=== PATIENT | female | born 1945 | race Caucasian/White ===

== ENCOUNTER 2021-06-25 17:00 | Inpatient (IN) | payer OTHER ==
--- OUTSIDE RECORDS SUMMARY | 2021-06-25 17:03 | XMS REPORT | Continuity of Care Document ---
:1945 Author Organization [facility] t Address [address] [place] [address] [address] [place] [address] Care Team Providers Name Role Phone FRANCO Primary Care Physician Unavailable VERONIKA Attending Clinician Unavailable Nguyen_Tho Attending Clinician Unavailable Raju_P Attending Clinician Unavailable FRANCO Attending Clinician Unavailable Nguyen_Tho Admitting Clinician Unavailable Raju_P Admitting Clinician Unavailable FRANCO Admitting Clinician Unavailable Payers Payer Name Policy Type Policy Number Effective Date Expiration Date S rachell [place]: [id number] 2008 [place] - 00:00:00 [facility] [id number] 2009 00:00:00 [facility] [id number] [place]: [id number] 2008 [place] 00:00:00 [facility] [id number] 2009 (MEDICARE 00:00:00 SUPPLEMENT) Problems Condition Condition Condition Status Onset Resolution Last Treating Co mments Source Name Details Category Date Date Treatment Clinician Date Hypertensi Hypertensi Problem Active M [facility] ve ve 08-17 da disorder Disorder 00:00: [facility] 00 [facility] Out[facility] Program Seizure Seizure Problem Active [place] disorder Disorder [facility] Essential Essential Problem Active [facility] hypertensi Hypertensi da on on Medical Group Acute Acute Problem Active [place] upper Upper da respirator Respirator Me dical y y Group infection Infection Allergic Allergic Problem Active [place] rhinitis Rhinitis [facility] Ankle Ankle Problem Active [place] joint pain Joint Pain [facility] Chronic Chronic Problem Active [place] back pain Back Pain [facility] Primary Primary Problem Active [place] fibromyalg Fibromyalg da ia ia Medical syndrome Syndrome Group Seizure Seizure Problem Active [place] [facility] Intertroch Intertroch Problem Active M [facility] anteric anteric da fracture Fracture Medica l Group Closed Closed Problem Active [place] fracture Fracture da of hip of Hip Medical Group Fracture Fracture Problem Active [place] of ankle of Ankle [facility] Closed Closed Problem Active [place] fracture Fracture da of lateral of Lateral Me dical malleolus Malleolus Grou p Allergies, Adverse Reactions, Alerts This patient has no known allergies or adverse reactions. Social History Smoking Status Start Date Stop Date Source Never Smoker [facility] Medications Ordered Filled Start Stop Current Ordering Indication Dosage Frequency Signature Comments Components Source Medication Medication Date Date Medication? Clinician (SIG) Name Name Depo-Medrol Depo-Medrol No Depo-Medro [place] 40 mg/mL 40 mg/mL 2-21 l 40 mg/mL d a suspension suspension 15:42: suspension Medical for for 00 for Group injectionTa injectionTa injectionT ke 1 mL by ke 1 mL by joey 1 mL injection injection by route. route. injection route. Diovan 160 Diovan 160 No Diovan 160 [place] mg tablet mg tablet mg tablet da TAKE 1 TAKE 1 TAKE 1 [facility] TABLET BY TABLET BY TABLET BY al MOUTH EVERY MOUTH EVERY MOUTH Health DAY DAY EVERY DAY Outreac h Program Lidocaine Lidocaine No 15mL Q3H Lidocaine [place] Viscous 2 % Viscous 2 % Viscous 2 da mucosal mucosal % mucosal Epis scleroscope tester solution solution solution al Take 15 mL Take 15 mL Take 15 mL Health every 3 every 3 every 3 Outrea c hours by hours by hours by h oral route oral route oral route Program for 5 days. for 5 days. for 5 swish and swish and days. spit out spit out swish and spit out amoxicillin amoxicillin No 1capsul Q8H amoxicilli [place] 500 mg 500 mg e(s) n 500 mg da capsule capsule capsule [facility] Take 1 Take 1 Take 1 al capsule capsule capsule Health every 8 every 8 every 8 Outrea c hours by hours by hours by h oral route oral route oral route Program for 10 for 10 for 10 days. days. days. carvedilol carvedilol No carvedilol [place] 25 mg 25 mg 25 mg da tablet TAKE tablet TAKE tablet [facility] 1 TABLET BY 1 TABLET BY TAKE 1 al MOUTH TWICE MOUTH TWICE TABLET BY Health A DAY A DAY MOUTH Outreac TWICE A h DAY Program Dilantin Dilantin No Dilantin [facility] Extended Extended Extended da 100 mg 100 mg 100 mg [facility] capsule capsule capsule al TAKE 3 TAKE 3 TAKE 3 Health CAPSULES BY CAPSULES BY CAPSULES Outreac MOUTH DAILY MOUTH DAILY BY MOUTH h AT BEDTIME AT BEDTIME DAILY AT Program BEDTIME alendronate alendronate No alendronat [place] 70 mg 70 mg e 70 mg da tablet Take tablet Take tablet Medical 1 tablet 1 tablet Take 1 Group every week every week tablet by oral by oral every week route. route. by oral route. aspirin 81 aspirin 81 No 1 Q1D aspirin 81 [place] mg chewable mg chewable mg d a tablet Chew tablet Chew chewable Medical 1 tablet 1 tablet tablet Group every day every day Chew 1 by oral by oral tablet route. route. every day by oral route. calcium calcium No calcium [place] r carbonate 1 carbonate 1 carbonate da TAB PO BID TAB PO BID 1 TAB PO Medical BID Group carvedilol carvedilol No carvedilol [place] 25 mg 25 mg 25 mg da tablet Take tablet Take tablet Medical 1 tablet 1 tablet Take 1 Group twice a day twice a day tablet by oral by oral twice a route for route for day by 90 days. 90 days. oral route for 90 days. Depo-Medrol Depo-Medrol No 1mL Depo-Medro [place] 40 mg/mL 40 mg/mL l 40 mg/mL d a suspension suspension suspension Medical for for for Group injection injection injection Take 1 mL Take 1 mL Take 1 mL by by by injection injection injection route. route. route. Dilantin Dilantin No Dilantin [place] Extended Extended Extended da 100 mg 100 mg 100 mg Medical capsule capsule capsule Group Take 1 Take 1 Take 1 capsule 3 capsule 3 capsule 3 times a day times a day times a by oral by oral day by route for route for oral route 90 days. 90 days. for 90 days. Diovan 160 Diovan 160 No Diovan 160 [place] mg tablet mg tablet mg tablet da Take 1 Take 1 Take 1 Medical tablet tablet tablet Group every day every day every day by oral by oral by oral route for route for route for 30 days. 30 days. 30 days. esomeprazol esomeprazol No esomeprazo [place] e magnesium e magnesium le d a 40 mg 40 mg magnesium Medical capsule,del capsule,del 40 mg Group ayed ayed capsule,de release release layed Take 1 Take 1 release capsule capsule Take 1 every day every day capsule by oral by oral every day route for route for by oral 30 days. 30 days. route for 30 days. fluticasone fluticasone No 2spray( Q1D fluticason [place] 50 50 s) e 50 da mcg/actuati mcg/actuati mcg/actuat Medical on nasal on nasal ion nasal Gr oup spray,suspe spray,suspe spray,susp nsion [place] nsion [place] ension 2 sprays 2 sprays [place] 2 every day every day sprays by by every day intranasal intranasal by route. route. intranasal route. mupirocin 2 mupirocin 2 No mupirocin [place] % topical % topical 2 % da ointment ointment topical Medi shola ointment Group Xyzal 5 mg Xyzal 5 mg No 1 Q1D Xyzal 5 mg [place] tablet Take tablet Take tablet da 1 tablet 1 tablet Take 1 Medic al every day every day tablet Gali up by oral by oral every day route for route for by oral 30 days. 30 days. route for 30 days. Immunizations Ordered Immunization Filled Immunization Date Status Commen ts Source Name Name pneumococcal pneumococcal 2016-11-13 Completed [facility] polysaccharide PPV23 polysaccharide PPV23 10:54:15 Medical Group influenza, high dose influenza, high dose 2016-11-13 Completed [facility] seasonal seasonal 10:50:00 Medical Group Vital Signs Vital Name Observation Time Observation Value Comments Source BP Diastolic 2020-08-17 00:00:00 68 mm[Hg] Treva blackman [facility] Height 2020-08-17 00:00:00 63 [in_i] Treva black[facility] BMI (Body Mass 2020-08-17 00:00:00 20 kg/m2 Rik churchill [facility] BP Systolic 2020-08-17 00:00:00 124 mm[Hg] [facility] Body Weight 2020-08-17 00:00:00 1808 [oz_av] [place] [facility] BP Diastolic 2018-03-28 00:00:00 74 mm[Hg] [facility] Height 2018-03-28 00:00:00 63 [in_i] [place] [facility] BMI (Body Mass 2018-03-28 00:00:00 21.8 kg/m2 [facility]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) Group BP Systolic 2018-03-28 00:00:00 130 mm[Hg] [place] [facility] Body Weight 2018-03-28 00:00:00 1971 [oz_av] [facility] Procedures Procedure Date / Time Performed Performing Clinician Sour e Joint Replacement 2014-02-05 00:00:00 [facility] Breast Biopsy 2011-02-05 00:00:00 [facility] Breast Surgery 2010-02-05 00:00:00 [facility] Hysterectomy [facility] Orthopedic Surgery [facility] Appendectomy [facility] Encounters Start End Encounter Admission Attending Care Care Encounter Source Date/Time Date/Time Type Type Clinicians Facility Department ID 2021-06-22 Outpatient [facility] [id number] [place] 11:57:51 [id number] Health 2021-04-06 2021-04-06 [facility] [id number] [place] 00:00:00 00:00:00 PINK[facility] [address] 2021-04-06 2021-04-06 [facility] [id number] [place] 00:00:00 00:00:00 PINK[facility] [address] 2020-08-18 2020-08-18 Outpatient Ngen_o [facility] [id number] [place] 05:00:00 05:00:00 0714 [facility] 2020-08-17 2020-08-17 Outpatient Ngen_o 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 Program 2019-12-24 2019-12-24 Outpatient Raju_P [facility] [id number] [place] 02:23:00 02:23:00 1118 da [facility] 2018-04-29 2018-04-29 [place] [id number] [place] 02:06:00 02:06:00 0609 [facility] 2018-03-28 2018-03-28 Mychal MM [place] - [id number] [place] 00:00:00 00:00:00 Ayush Chavez Medical Medical MD: [address] [facility], [place] [address] , Ph. 2017-04-12 2017-04-12 [id number] 19:11:00 19:11:00 [facility] Results Test Description Test Time Test Comments Results Result Comments Source Comprehensive Metabolic Panel 2017-04-12 20:30:00 Test Item Value Reference Range Interpretation Comme nts Sodium (test code = NA) 143 mmol/L 135-145 N Potassium (test code = K) 4.8 mmol/L 3.5-5.1 N Chloride (test code = CL) 101 mmol/L 98-105 N Carbon Dioxide (test code = 27 mmol/L 22-29 N CO2) Glucose (test code = GLU) 91 mg/dL 70-115 N Blood Urea Nitrogen (test 18 mg/dL 8-23 N code = BUN) Creatinine (test code = 0.9 mg/dL 0.5-0.9 N CREAT) Calcium (test code = CA) 8.9 mg/dL 8.3-10.5 N Prot Total (test code = TP) 6.3 g/dL 6.4-8.3 L Albumin (test code = ALB) 4.0 g/dL 3.5-5.2 N A/G Ratio (test code = 1.7 Ratio AGRATIO) Globulin (test code = GLOB) 2.3 2.9-3.1 L Bili Total (test code = 0.2 mg/dL 0.1-0.9 N TBIL) Alk Phos (test code = 96 U/L 35-104 N APHOS) AST (test code = AST) 24 U/L 1-32 N ALT (test code = ALT) 23 U/L 1-33 N BUN/Creatinine Ratio (test 20.0 code = BCRATIO) Anion Gap (test code = 15 mmol/L 7-16 N AGAP) Estimated GFR (test code = >60 mL/min/1.73m2 eGFR (estimated Glomerular GFR) Filtration Rate ) is an estimated value ,calculated from the patien t's serum creatinine usin g the MDRD equation.It is NOT the patient's actua l GFR. The eGFR provides a more clinicallyusefu l measure of kidney disease than serum creatinine luis e.This calculation alva es sex and race into accou nt, if the informationis p rovided. If the race is not provided, and the patient isAfrican-Ameri can, multiply by 1.212. If se x is not provided, and t hepatient is female, multipl y by 0.742. Results for pat ients <18 years ofage hav e not been validated by e MDRD study and should be i nterpretedwith caution.eGFR Re sult Interpretation: eGFR > or = 60 is in the Ruthy l RangeeGFR < 60 may mean kid gaurav diseaseeGFR < 1 5 may mean kidney failure* Ranges recommended by the National Kidney Foundation,http ://nkdep.nih.g ov Lipid [id number] 20:30:00 Test Item Value Reference Range Interpretation Comments Cholesterol (test 185 mg/dL 0-200 N code = CHOL) Triglycerides (test 79 mg/dL 9-200 N code = TRIG) HDL (test code = 80 mg/dL 50-60 H HDL) Chol/HDL (test code 2.3 Ratio 0.0-4.4 N = CHOLPHDL) LDL, Calculated 89 mg/dL 0-130 N (NOTE)RISK O F HEART (test code = LDLC) DISEASEPu blished by [place] Heart AssociationAnal yte Optim al Boderline Increased RiskC HOL <200 200-239 >240TRI G <150 150-199 >200HDL Male: >60 <40HDL Female: >60 <50 LDL < 100 130-15 9 >160 LDL NEAR OPTIMAL IS 100- 129 VLDL (test code = 16 mg/dL 5-40 N VLDL) LDL/HDL (test code = 1 LDLPHDL) CBC with [id number] 19:36:00 Test Item Value Reference Range Interpretation Comments WBC (test code = WBC) 4.5 K/cumm 4.4-10.5 N RBC (test code = RBC) 4.13 M/cumm 3.75-5.20 N Hemoglobin (test code = HGB) 12.9 gm/dL 12.2-14.8 N Hematocrit (test code = HCT) 38.6 % 36.5-44.4 N MCV (test code = MCV) 93.5 fL 80-100 N MCH (test code = MCH) 31.1 pg 27.0-32.5 N MCHC (test code = MCHC) 33.3 g/dL 32.0-37.5 N RDW (test code = RDW) 13.0 % 11.5-14.5 N Platelet Count (test code = 221 K/cumm 140-440 N PLTCT) MPV (test code = MPV) 6.9 fL Diff Method (test code = DIFFM) Auto Neutrophil (test code = NEUT) 57.4 % 36-70 N Lymphocyte (test code = LYMPH) 28.2 % 12-44 N Monocyte (test code = MONO) 8.6 % 0-11 N Eosinophil (test code = EOS) 4.9 % 0-7 N Basophil (test code = BASO) 0.8 % 0-2 N Neutro Abs (test code = ANEUT) 2.6 K/cumm 1.6-7.4 N Lymph Abs (test code = ALYMPH) 1.3 K/cumm 0.5-4.6 N Whitman Abs (test code = AMONO) 0.4 K/cumm 0.0-1.2 N Eos Abs (test code = AEOS) 0.22 K/cumm 0.00-0.74 N Baso Abs (test code = ABASO) 0.0 K/cumm 0.00-0.21 N PHENYTOIN LEVEL, [id number] 16:23:00 Test Item Value Reference Range Interpretation Comments PHENYTOIN (DILANTIN) (BEAKER) 13.7 ug/mL 10.0-20.0 (test code = 605) HEPATIC FUNCTION [id number] 16:17:00 Test Item Value Reference Range Interpretation Comments TOTAL PROTEIN (BEAKER) (test code = 7.3 gm/dL 6.0-8.3 770) ALBUMIN (BEAKER) (test code = 1145) 4.1 g/dL 3.5-5.0 BILIRUBIN TOTAL (BEAKER) (test code 0.3 mg/dL 0.2-1.2 = 377) BILIRUBIN DIRECT (BEAKER) (test 0.1 mg/dL 0.1-0.5 code = 706) ALKALINE PHOSPHATASE (BEAKER) (test 108 U/L 40-150 code = 346) AST (SGOT) (BEAKER) (test code = 26 U/L 5-34 353) ALT (SGPT) (BEAKER) (test code = 35 U/L 6-55 347) CBC W/PLT COUNT & AUTO [id number] 16:01:00 Test Item Value Reference Range Interpretation Comments WHITE BLOOD CELL COUNT (BEAKER) 4.2 K/ L 3.5-10.5 (test code = 775) RED BLOOD CELL COUNT (BEAKER) 4.08 M/ L 3.93-5.22 (test code = 761) HEMOGLOBIN (BEAKER) (test code = 12.4 GM/DL 11.2-15.7 410) HEMATOCRIT (BEAKER) (test code = 37.6 % 34.1-44.9 411) MEAN CORPUSCULAR VOLUME (BEAKER) 92.2 fL 79.4-94.8 (test code = 753) MEAN CORPUSCULAR HEMOGLOBIN 30.4 pg 25.6-32.2 (BEAKER) (test code = 751) MEAN CORPUSCULAR HEMOGLOBIN CONC 33.0 GM/DL 32.2-35.5 (BEAKER) (test code = 752) RED CELL DISTRIBUTION WIDTH 12.7 % 11.7-14.4 (BEAKER) (test code = 412) PLATELET COUNT (BEAKER) (test 184 K/CU MM 150-450 code = 756) MEAN PLATELET VOLUME (BEAKER) 8.7 fL 9.4-12.3 L (test code = 754) NUCLEATED RED BLOOD CELLS 0 /100 WBC 0-0 (BEAKER) (test code = 413) NEUTROPHILS RELATIVE PERCENT 55 % (BEAKER) (test code = 429) LYMPHOCYTES RELATIVE PERCENT 29 % (BEAKER) (test code = 430) MONOCYTES RELATIVE PERCENT 9 % (BEAKER) (test code = 431) EOSINOPHILS RELATIVE PERCENT 6 % (BEAKER) (test code = 432) BASOPHILS RELATIVE PERCENT 1 % (BEAKER) (test code = 437) NEUTROPHILS ABSOLUTE COUNT 2.29 K/ L 1.56-6.13 (BEAKER) (test code = 670) LYMPHOCYTES ABSOLUTE COUNT 1.20 K/ L 1.18-3.74 (BEAKER) (test code = 414) MONOCYTES ABSOLUTE COUNT (BEAKER) 0.37 K/ L 0.24-0.36 H (test code = 415) EOSINOPHILS ABSOLUTE COUNT 0.25 K/ L 0.04-0.36 (BEAKER) (test code = 416) BASOPHILS ABSOLUTE COUNT (BEAKER) 0.04 K/ L 0.01-0.08 (test code = 417) IMMATURE GRANULOCYTES-RELATIVE 0 % 0-1 PERCENT (BEAKER) (test code = 9991)
--- NOTE | 2021-06-25 22:14 | ER ---
Nurse's Notes [facility] Name: Marlyn Conner Age: 75 yrs Sex: Female : 1945 Arrival Date: 06/25/2021 Time: 17:07 Bed 5 Private MD: Diagnosis: Repeated falls;Pain in right hip-intractable, intractable;Fracture of other parts of pelvis-superior pubic ramus Presentation: 06/25 17:14 Chief complaint: Patient states: had a fall a week ago, fell in her house and hit her iw head and fell on right side , yesterday went outside and fell on same right leg , had previous surgery on that leg , now is unable to walk due to pain in groin and hip , [facility] and they did an xray but couldn't see anything. 17:14 Acuity: BHAKTI 3 iw 17:14 Method Of Arrival: Wheelchair iw 17:15 Coronavirus screen: At this time, the client does not indicate any symptoms associated iw with coronavirus-19. Ebola Screen: Patient negative for fever greater than or equal to 101.5 degrees Fahrenheit, and additional compatible Ebola Virus Disease symptoms Patient denies exposure to infectious person. Patient denies travel to an Ebola-affected area in the 21 days before illness onset. No symptoms or risks identified at this time. Initial Sepsis Screen: Does the patient meet any 2 criteria? No. Patient's initial sepsis screen is negative. Does the patient have a suspected source of infection? No. Patient's initial sepsis screen is negative. Risk Assessment: Do you want to hurt yourself or someone else? Patient reports no desire to harm self or others. Onset of symptoms was June 18, 2021. Historical: - Allergies: 17:16 No Known Allergies; iw - Home Meds: 17:16 carvedilol oral [Active]; Diovan Oral [Active]; Dilantin Oral [Active]; iw - PMHx: 17:16 Hypertensive disorder; breast cancer; Seizure; iw - Immunization history:: Adult Immunizations up to date. - Social history:: Smoking status: . Screenin:21 Abuse screen: Denies threats or abuse. Denies injuries from another. Nutritional kd3 screening: No deficits noted. Tuberculosis screening: No symptoms or risk factors identified. Fall Risk Fall in past 12 months (25 points). Assessment: 21:21 General: Appears in no apparent distress. Behavior is calm, cooperative. Pain: kd3 Complains of pain in right hip and groin, back pain since first fall. Neuro: Level of Consciousness is awake, alert, obeys commands, Oriented to person, place, time, situation. Cardiovascular: Patient's skin is warm and dry. Respiratory: Airway is patent Trachea midline Respiratory effort is even, unlabored. Vital Signs: 17:15 BP 152 / 81; Pulse 97; Resp 16; Temp 97.1; Pulse Ox 98% on R/A; iw 21:22 BP 168 / 84; Pulse 84; Resp 19; Pulse Ox 100% on R/A; kd3 06/26 01:12 BP 152 / 77; Pulse 85; Resp 16; Pulse Ox 99% on R/A; kd3 ED Course: 06/25 17:07 Patient arrived in ED. ds1 17:15 Triage completed. iw 17:17 Arm band placed on. iw 21:08 Bed in low position. Call light in reach. Side rails up X 1. Door closed. Noise mb7 minimized. Warm blanket given. 21:12 Althea Garcia, RN is Primary Nurse. kd3 21:17 Regino Gayle MD is Attending Physician. alexandro 21:55 CT Head C Spine In Process Unspecified. EDMS 22:12 Chelsey Michel MD is Hospitalizing Provider. alexandro 22:37 Pelvis XRAY In Process Unspecified. EDMS 22:37 Hip Right 2 View XRAY In Process Unspecified. EDMS 22:37 Femur Right XRAY In Process Unspecified. EDMS 23:19 Pelvis Wo Cont In Process Unspecified. EDMS 05 01:05 No provider procedures requiring assistance completed. Inserted saline lock: 22 gauge kd3 in right forearm, using aseptic technique. 01:06 Patient admitted, IV remains in place. kd3 Administered Medications: 06/25 22:39 Drug: NS 0.9% 1000 ml Route: IV; Rate: 125 ml/hr; Site: right antecubital; kd3 06/26 01:06 Follow up: IV Status: Completed infusion kd3 01:11 Follow up: Response: No adverse reaction; IV Status: Completed infusion kd3 06/25 22:40 Drug: morphine 2 mg Route: IVP; Site: right antecubital; kd3 06/26 01:11 Follow up: Response: No adverse reaction kd3 06/25 22:40 Drug: Zofran (Ondansetron) 4 mg Route: IVP; Site: right antecubital; kd3 06/26 01:11 Follow up: Response: No adverse reaction kd3 Medication: 06/25 21:22 VIS not applicable for this client. kd3 Outcome: 22:13 Decision to Hospitalize by Provider. [facility] 06/26 01:05 Admitted to Med/surg Report called to attempted to call report david SMITH kd3 Condition: stable Discharge instructions given to patient, Instructed on the need for admit, Demonstrated understanding of instructions. 01:10 Admitted to Med/surg room 216, Report called to charge nurse kd3 01:47 Patient left the ED. kd3 Signatures: Dispatcher [employer] EDSC Regino Gayle MD MD cha Sanford, Demi ds1 Romy Gutierres RN RN iw Doucette, Kyli, RN RN kd3 Sonia Marquez mb7 Corrections: (The following items were deleted from the chart) 06/25 17:16 17:14 Chief complaint: Patient states: had a fall a week ago, fell in her house and hit iw her head and fell on right side , yesterday went outside and fell on same right leg , had previous surgery on that leg , now is unable to walk due to pain in groin and hip iw
--- NOTE | 2021-06-25 22:14 | EDPHYS ---
Physician Documentation [facility] Name: Marlyn Conner Age: 75 yrs Sex: Female : 1945 Arrival Date: 06/25/2021 Time: 17:07 Bed 5 Private MD: ED Physician Regino Gayle HPI: 06/25 21:30 This 75 yrs old Female presents to ER via Wheelchair with complaints of Fall alexandro Injury - Pain. 21:30 Details of fall: The patient fell from an upright position, while walking. Onset: The alexandro symptoms/episode began/occurred 1 day(s) ago. Associated injuries: The patient sustained right hip, right gluteal fold, right inner thigh and right upper thigh, decreased range of motion. Severity of symptoms: At their worst the symptoms were mild, in the emergency department the symptoms are unchanged. The patient has not experienced similar symptoms in the past. Historical: - Allergies: 17:16 No Known Allergies; iw - Home Meds: 17:16 carvedilol oral [Active]; Diovan Oral [Active]; Dilantin Oral [Active]; iw - PMHx: 17:16 Hypertensive disorder; breast cancer; Seizure; iw - Immunization history:: Adult Immunizations up to date. - Social history:: Smoking status: . ROS: 21:32 Constitutional: Negative for fever, chills, and weight loss, Eyes: Negative for injury, alexandro pain, redness, and discharge, ENT: Negative for injury, pain, and discharge, Neck: Negative for injury, pain, and swelling, Cardiovascular: Negative for chest pain, palpitations, and edema, Respiratory: Negative for shortness of breath, cough, wheezing, and pleuritic chest pain, Abdomen/GI: Negative for abdominal pain, nausea, vomiting, diarrhea, and constipation, Back: Negative for injury and pain, : Negative for injury, bleeding, discharge, and swelling, Skin: Negative for injury, rash, and discoloration, Neuro: Negative for headache, weakness, numbness, tingling, and seizure, Psych: Negative for depression, anxiety, suicide ideation, homicidal ideation, and hallucinations, Allergy/Immunology: Negative for hives, rash, and allergies, Endocrine: Negative for neck swelling, polydipsia, polyuria, polyphagia, and marked weight changes, Hematologic/Lymphatic: Negative for swollen nodes, abnormal bleeding, and unusual bruising. 21:32 MS/extremity: Positive for decreased range of motion, pain, swelling, tenderness, of the right hip. Exam: 21:32 Constitutional: This is a well developed, well nourished patient who is awake, alert, alexandro and in no acute distress. Head/Face: Normocephalic, atraumatic. Eyes: Pupils equal round and reactive to light, extra-ocular motions intact. Lids and lashes normal. Conjunctiva and sclera are non-icteric and not injected. Cornea within normal limits. Periorbital areas with no swelling, redness, or edema. ENT: Nares patent. No nasal discharge, no septal abnormalities noted. Tympanic membranes are normal and external auditory canals are clear. Oropharynx with no redness, swelling, or masses, exudates, or evidence of obstruction, uvula midline. Mucous membranes moist. Neck: Trachea midline, no thyromegaly or masses palpated, and no cervical lymphadenopathy. Supple, full range of motion without nuchal rigidity, or vertebral point tenderness. No Meningismus. Chest/axilla: Normal chest wall appearance and motion. Nontender with no deformity. No lesions are appreciated. Cardiovascular: Regular rate and rhythm with a normal S1 and S2. No gallops, murmurs, or rubs. Normal PMI, no JVD. No pulse deficits. Respiratory: Lungs have equal breath sounds bilaterally, clear to auscultation and percussion. No rales, rhonchi or wheezes noted. No increased work of breathing, no retractions or nasal flaring. Abdomen/GI: Soft, non-tender, with normal bowel sounds. No distension or tympany. No guarding or rebound. No evidence of tenderness throughout. Back: No spinal tenderness. No costovertebral tenderness. Full range of motion. Female : Normal external genitalia. Skin: Warm, dry with normal turgor. Normal color with no rashes, no lesions, and no evidence of cellulitis. Neuro: Awake and alert, GCS 15, oriented to person, place, time, and situation. Cranial nerves II-XII grossly intact. Motor strength 5/5 in all extremities. Sensory grossly intact. Cerebellar exam normal. Normal gait. Psych: Awake, alert, with orientation to person, place and time. Behavior, mood, and affect are within normal limits. 21:32 Musculoskeletal/extremity: ROM: no acute changes, intact in all extremities, Circulation is intact in all extremities. Sensation intact. Compartment Syndrome exam of affected extremity: is normal. 21:32 Neuro: Orientation: is normal, Mentation: is normal, appropriate for stated age, no acute changes, Memory: is normal, appropriate for stated age, no acute changes, Cranial nerves: grossly normal, is grossly normal based on the patient's age, no acute changes, Motor: moves all fours, strength is normal, Sensation: is normal, no obvious gross deficits, appropriate no acute changes, Gait: not tested. seizure activity, is not displayed by the patient. Vital Signs: 17:15 BP 152 / 81; Pulse 97; Resp 16; Temp 97.1; Pulse Ox 98% on R/A; iw 21:22 BP 168 / 84; Pulse 84; Resp 19; Pulse Ox 100% on R/A; kd3 06/26 01:12 BP 152 / 77; Pulse 85; Resp 16; Pulse Ox 99% on R/A; kd3 MDM: 06/25 21:17 Patient medically screened. [facility] 21:31 Differential diagnosis: hip fracture, intertrochanteric fracture, femoral neck alexandro fracture, femoral shaft fracture, bursitis, arthritis. Differential diagnosis: closed head injury, contusion, fracture. Data reviewed: vital signs, nurses notes. Data interpreted: zinc skimmer:. Test interpretation: by ED physician or midlevel provider: plain radiologic studies. Counseling: I had a detailed discussion with the patient and/or guardian regarding: the historical points, exam findings, and any diagnostic results supporting the discharge/admit diagnosis, lab results, radiology results. 06/25 21:29 Order name: CBC with Diff; Complete Time: 23:06 [facility] 06/25 21:29 Order name: Comprehensive Metabolic Panel; Complete Time: 23:06 [facility] 06/25 21:29 Order name: CT Head C Spine [facility] 06/25 21:29 Order name: Pelvis XRAY [facility] 06/25 21:30 Order name: Dilantin; Complete Time: 23:06 [facility] 06/25 22:29 Order name: SARS-COV-2 RT PCR (Document "Date of Onset" if Symptomatic) [facility] 06/25 21:29 Order name: Hip Right 2 View XRAY [facility] 06/25 21:29 Order name: Femur Right XRAY [facility] 06/25 22:11 Order name: CT Pelvis wo Cont: include both hips alexandro 06/25 22:15 Order name: Pelvis Wo Cont EDMS Administered Medications: 22:39 Drug: NS 0.9% 1000 ml Route: IV; Rate: 125 ml/hr; Site: right antecubital; 3 06/26 01:06 Follow up: IV Status: Completed infusion kd3 01:11 Follow up: Response: No adverse reaction; IV Status: Completed infusion kd3 06/25 22:40 Drug: morphine 2 mg Route: IVP; Site: right antecubital; kd3 06/26 01:11 Follow up: Response: No adverse reaction kd3 06/25 22:40 Drug: Zofran (Ondansetron) 4 mg Route: IVP; Site: right antecubital; kd3 06/26 01:11 Follow up: Response: No adverse reaction kd3 Disposition Summary: 06/25/21 22:13 Hospitalization Ordered Hospitalization Status: Observation alexandro Provider: Chelsey Michel cha Location: Telemetry/MedSurg (observation) alexandro Condition: Fair alexandro Problem: new alexandro Symptoms: have improved alexandro Bed/Room Type: Standard alexandro Room Assignment: 216(06/26/21 00:20) ll1 Diagnosis - Repeated falls alexandro - Pain in right hip - intractable, intractable alexandro - Fracture of other parts of pelvis - superior pubic ramus alexandro Forms: - Medication Reconciliation Form alexandro - SBAR form alexandro Signatures: Dispatcher [employer] EDMS Regino Gayle MD MD cha Williams, Irene, RN RN iw Lewis, Lynsay, RN RN ll1 Althea Garcia RN RN kd3 Francesca Liang PA PA sb3 Corrections: (The following items were deleted from the chart) 00:20 06/25 22:13 alexandro ll1
[2021-06-25] MEDS ORDERED: NA CHLORIDE 0.9% 1,000 ML ONE (22:22)
[2021-06-25] MEDS ORDERED: ONDANSETRON 4 MG/2 ML VIAL ONE (22:22)
[2021-06-25] MEDS ORDERED: MORPHINE 2 MG/ML SYR ONE (22:22)
[2021-06-25 22:32] LABS: Absolute Lymphocytes (CBC) 1.1 K/uL (0.7-4.9); Hematocrit 30.2 % (36.0-45.0); Lymphocytes % 22.6 % (15.3-44.8); MPV 6.7 fL (7.6-11.3); RBC Red Blood Cell Count 3.19 M/uL (3.86-4.86)
[2021-06-25 22:39] LABS: Albumin 3.7 g/dL (3.4-5.0); Bilirubin Total 0.6 mg/dL (0.2-1.0); Phenytoin (Dilantin) Level 10.5 ug/mL (10.0-20.0); Potassium 3.7 mmol/L (3.5-5.1); Protein, Total 7.6 g/dL (6.4-8.2)
--- NOTE | 2021-06-25 23:44 | P.HP ---
Certification for Inpatient Patient admitted to: Observation With expected LOS: <2 Midnights Patient will require the following post-hospital care: None Practitioner: I am a practitioner with admitting privileges, knowledge of patient current condition, hospital course, and medical plan of care. Services: Services provided to patient in accordance with Admission requirements found in Title 42 Section 412.3 of the Code of Federal Regulations Patient History Date of Service: 06/26/21 Reason for admission: Pubic Ramus Fracutre, Leg Weakness History of Present Illness: Patient is a 75-year-old female with HTN who presents to the ED with complaints of right leg pain and weakness. She states that about a week ago, she was at home and fell onto her right side. Then yesterday she went outside and fell on the same leg. She has history of ORIF on right femur. Patient states that she is unable to walk now due to pain in her groin and hip. CT pelvis showed acute right superior pubic ramus fracture. Labs within normal limits. because of patient's significant weakness and decreased range of motion in R leg, ED provider wishes to admit patient for observation so rehab can be started and she can be seen by Dr. Stiles. Allergies No Known Allergies Allergy (Verified 07/18/14 02:50) Home Medications: Phenytoin Sodium Extended [Dilantin] 300 mg PO BEDTIME 06/20/14 Valsartan 160 mg PO DAILY 06/20/14 carvediloL [Coreg*] 25 mg PO BID 06/20/14 Baclofen [Lioresal*] 20 mg PO Q6H PRN #50 tab 07/27/14 Calcium Carbonate [Oscal*] 500 mg PO BID #60 tab 07/27/14 Celecoxib [Celebrex*] 200 mg PO BID #60 cap 07/27/14 Hydrocodone 5/APAP 325 [[place] 5/325*] 1 tab PO Q4HP PRN #0 tab 07/27/14 Lidocaine 4% Patch [Lidoderm 5% Patch*] 1 patch TP DAILY #30 patch 07/27/14 Magnesium Oxide [Mag 0X*] 400 mg PO DAILY #30 tab 07/27/14 Rivaroxaban [Xarelto*] 15 mg PO DAILY AT SUPPER #30 tablet 07/27/14 - Past Medical/Surgical History Diabetic: No -: HTN -: HLD -: HX OF SEIZURES -: BREAST LUMPECTOMY -: OVARY GROWTH REMOVAL -: CHEST LYMPH NODE REMOVAL -: R Femur ORIF Psychosocial/ Personal History: Patient lives at home with her . - Family History Mother -: Hypertension Sister -: Hypertension Brother -: Hypertension - Social History Smoking Status: Never smoker Alcohol use: No CD- Drugs: No Caffeine use: Yes Place of Residence: Home Review of Systems Musculoskeletal: Leg Pain, As per HPI Physical Examination - Physical Exam General: Alert, In no apparent distress, Other (tearful) HEENT: Atraumatic, PERRLA, Mucous membr. moist/pink, EOMI, Sclerae nonicteric Neck: Supple, 2+ carotid pulse no bruit, No LAD, Without JVD or thyroid abnormality Respiratory: Clear to auscultation bilaterally, Normal air movement Cardiovascular: Regular rate/rhythm, Normal S1 S2 Gastrointestinal: Normal bowel sounds, No tenderness Musculoskeletal: No tenderness Integumentary: No rashes Neurological: Normal speech, Normal tone, Sensation intact, Normal affect - Studies Laboratory Data (last 24 hrs) 06/25/21 22:14: Sodium 137, Potassium 3.7, BUN 17, Creatinine 0.74, Glucose 101, Total Bilirubin 0.6, AST 24, ALT 28, Alkaline Phosphatase 117 06/25/21 22:14: WBC 4.7, Hgb 10.7 L, Hct 30.2 L, Plt Count 161 Assessment and Plan - Problems (Diagnosis) (1) Pubic ramus fracture Current Visit: Yes Status: Acute Qualifiers: Encounter type: initial encounter Fracture type: closed Laterality: right Qualified Code(s): S32.591A - Other specified fracture of right pubis, initial encounter for closed fracture (2) Weakness of right leg Current Visit: Yes Status: Acute (3) Dyslipidemia Current Visit: No Status: Chronic (4) Hypertension Current Visit: No Status: Chronic Qualifiers: Hypertension type: primary hypertension Qualified Code(s): I10 - Essential (primary) hypertension - Plan -[place] PRN pain -rehab ordered -Go consulted -cont home xarelto for VTE ppx Discharge Plan: Home Plan to discharge in: 24 Hours - Advance Directives Does patient have a Living Will: No Does patient have a Durable POA for Healthcare: No - Code Status/Comfort Care Code Status Assessed: Yes (Full) Critical Care: No Time Spent Managing Pts Care (In Minutes): 50
[2021-06-26] MEDS ORDERED: ONDANSETRON 4 MG/2 ML VIAL IV PRN (02:21)
[2021-06-26] MEDS: HYDROCODONE/APAP 7.5/325 MG TAB PO PRN ×3 (05:39→22:07)
[2021-06-26 06:04] VITALS: BMI 21.4
[2021-06-26] MEDS ORDERED: ENOXAPARIN 40 MG/0.4 ML SQ SCH (09:00)
--- NOTE | 2021-06-26 12:30 | P.PN ---
Subjective Date of Service: 06/26/21 Chief Complaint: Pubic Ramus Fracutre, Leg Weakness Patient reports intermittent pelvic pain. Physical Examination - Vital Signs Temperature: 98.3 F Blood Pressure: 119/53 Pulse: 88 Respirations: 16 Pulse Ox (%): 95 - Physical Exam General: Alert, In no apparent distress, Oriented x3 HEENT: Mucous membr. moist/pink Neck: JVD not distended Respiratory: Clear to auscultation bilaterally, Normal air movement Cardiovascular: No edema, Regular rate/rhythm, Normal S1 S2 Gastrointestinal: Normal bowel sounds, Soft and benign, Non-distended, No tenderness Musculoskeletal: No swelling Integumentary: No rashes Neurological: Normal speech, Normal strength at 5/5 x4 extr - Studies Laboratory Data (last 24 hrs) 06/25/21 22:14: Sodium 137, Potassium 3.7, BUN 17, Creatinine 0.74, Glucose 101, Total Bilirubin 0.6, AST 24, ALT 28, Alkaline Phosphatase 117 06/25/21 22:14: WBC 4.7, Hgb 10.7 L, Hct 30.2 L, Plt Count 161 Assessment And Plan - Current Problems (Diagnosis) (1) Pubic ramus fracture Current Visit: Yes Status: Acute Qualifiers: Encounter type: initial encounter Fracture type: closed Laterality: right Qualified Code(s): S32.591A - Other specified fracture of right pubis, initial encounter for closed fracture (2) Gastroesophageal reflux Onset Date: 06/22/14 Current Visit: No Status: Acute (3) Seizure disorder Onset Date: 06/22/14 Current Visit: No Status: Acute (4) Hypertension Current Visit: No Status: Chronic Qualifiers: Hypertension type: primary hypertension Qualified Code(s): I10 - Essential (primary) hypertension - Plan Conservative measures-pain medications as needed. PT to evaluate. Resume home medications for seizure disorder, and hypertension. Check orthostatic vitals Disposition pending PT evaluation. DVT prophylaxis.
--- NOTE | 2021-06-26 15:08 | P.CNS ---
Date of Consult: 06/26/21 (patient has non displaced pubic rami facture right side will need wbat no particular treatment needed until completion)
[2021-06-26] MEDS ORDERED: RIVAROXABAN 15 MG TABLET PO SCH (17:00)
[2021-06-26] MEDS ORDERED: PHENYTOIN ER 100 MG CAP PO SCH (21:00)
[2021-06-26] MEDS: carvediloL 25 MG TAB PO SCH (22:08)
[2021-06-27] MEDS: carvediloL 25 MG TAB PO SCH (06:06)
[2021-06-27] MEDS ORDERED: VALSARTAN 160 MG TAB PO SCH (09:00)
[2021-06-27] MEDS ORDERED: MULTIVIT W/ MINERAL TAB PO SCH (09:00)
[2021-06-27 09:22] LABS: Urine Appearance Clear (Clear); Urine Bilirubin Negative (Negative); Urine Blood Negative (Negative); Urine Color Yellow (Yellow); Urine Glucose Negative (Negative); Urine Microscopic Reflex NO UMIC; Urine Protein Negative (Negative); Urine Urobilinogen 0.2 mg/dL (0.2-1.0)
[2021-06-27 09:49] VITALS: O2SAT 99
--- NOTE | 2021-06-27 10:28 | RAD REPORT ---
EXAM DESCRIPTION: CT - [id number] - 06/26/2021 5:[address] HEAD [address] CT CERVICAL SPINE WITHOUT CONTRAST none. CLINICAL HISTORY: Fall COMPARISON: None. TECHNIQUE: Axial [address] imaging of the brain. Axial [address] imaging of the cervical spine. Reformatted coronal and sagittal images obtai karina. This examination was performed according to our departmental dose optimization program, which include s automated exposure control, adjustment of the mA and/or kV according to patient size and/or use of iterative reconstruction technique. FINDINGS: CT Head: Mild age-related cortical volume loss. There is mild decreased attenuation of the white matter second craig to chronic microvascular ischemic change. There is no intraparenchymal or extra-axial bleed. No m ass or midline shift. No evidence of acute large territorial infarction. No edema. No hyperdense vess el. Normal cerebellum and vermis. Fourth ventricle is midline. Prepontine cisterns are not effaced. N ormal sella contents. Intraorbital contents are unremarkable. Clear paranasal sinuses. Right frontal sinus is hypopneumatiz ed. Mastoid air cells are clear. Imaged facial bones are intact. Intact skull base and calvarium. Nor mal scalp soft tissues. CT cervical spine: Normal cervical lordotic alignment. There is no compression fracture. No subluxation. Intact odontoid process the posterior elements are intact. There is bony fusion of the right side at the C2-C3 facet s. There is significant degenerative disc narrowing with endplate sclerosis and moderate bony hypertroph y at C3. There are mild hypertrophic changes throughout the remaining cervical spine. There is uncove rtebral joint hypertrophy at C3-4 resulting in severe right and significant left neural foraminal roly nosis. There is no spinal canal stenosis. No prevertebral edema. Parapharyngeal soft tissues and mucosal spaces appear normal. Normal epiglottis. No prevertebral mauro a. No adenopathy. Unremarkable thyroid. Clear lung apices. IMPRESSION: 1. Mild senescent age-related brain changes. No intracranial bleed or skull fracture. 2. Cervical spondylosis, greatest at C3-4 and C5-6. No acute cervical spine fracture or subluxation. Electronically signed by: Maryana Washington DO 06/25/2021 10:18 PM CDT Due to temporary technical issues with the PACS/Fluency reporting system, reports are being signed by the in house radiologist without review as a courtesy to ensure prompt reporting. The interpreting r adiologist is fully responsible for the content of the report.
--- NOTE | 2021-06-27 10:34 | RAD REPORT ---
EXAM DESCRIPTION: RAD - Pelvis - 06/25/2021 10:35 pm CLINICAL HISTORY: PAIN. COMPARISON: None. TECHNIQUE: Single view AP pelvic radiograph. Two views of the right hip: AP and frog-leg lateral rad iographs. Two views of the right femur: AP and lateral radiographs. FINDINGS: No acute osseous abnormality identified. Bilateral hip joint alignment is maintained. No s acroiliac or pubic symphyseal joint space widening. No concerning osseous lesion or avascular necrosi s. Osteopenia. Right proximal femur intramedullary maría elena, femoral neck screw, and lateral plate and scr ew fixation with cerclage wires in place with no concerning perihardware lucencies. Two patellar fixa tion screws. IMPRESSION: No acute osseous abnormality identified. Osteopenia. Right femur ORIF. Electronically signed by: Geri Briscoe MD 06/25/2021 10:54 PM CDT Due to temporary technical issues with the PACS/Fluency reporting system, reports are being signed by the in house radiologist without review as a courtesy to ensure prompt reporting. The interpreting r adiologist is fully responsible for the content of the report.
--- NOTE | 2021-06-27 10:42 | RAD REPORT ---
EXAM DESCRIPTION: RAD - Hip Right 2 View - 06/25/2021 10:35 pm CLINICAL HISTORY: PAIN. COMPARISON: None. TECHNIQUE: Single view AP pelvic radiograph. Two views of the right hip: AP and frog-leg lateral rad iographs. Two views of the right femur: AP and lateral radiographs. FINDINGS: No acute osseous abnormality identified. Bilateral hip joint alignment is maintained. No s acroiliac or pubic symphyseal joint space widening. No concerning osseous lesion or avascular necrosi s. Osteopenia. Right proximal femur intramedullary maría elena, femoral neck screw, and lateral plate and scr ew fixation with cerclage wires in place with no concerning perihardware lucencies. Two patellar fixa tion screws. IMPRESSION: No acute osseous abnormality identified. Osteopenia. Right femur ORIF. Electronically signed by: Geri Briscoe MD 06/25/2021 10:54 PM CDT Due to temporary technical issues with the PACS/Fluency reporting system, reports are being signed by the in house radiologist without review as a courtesy to ensure prompt reporting. The interpreting r adiologist is fully responsible for the content of the report.
--- NOTE | 2021-06-27 10:47 | RAD REPORT ---
EXAM DESCRIPTION: RAD - Femur Right - 06/25/2021 10:35 pm CLINICAL HISTORY: PAIN. COMPARISON: None. TECHNIQUE: Single view AP pelvic radiograph. Two views of the right hip: AP and frog-leg lateral rad iographs. Two views of the right femur: AP and lateral radiographs. FINDINGS: No acute osseous abnormality identified. Bilateral hip joint alignment is maintained. No s acroiliac or pubic symphyseal joint space widening. No concerning osseous lesion or avascular necrosi s. Osteopenia. Right proximal femur intramedullary maría elena, femoral neck screw, and lateral plate and scr ew fixation with cerclage wires in place with no concerning perihardware lucencies. Two patellar fixa tion screws. IMPRESSION: No acute osseous abnormality identified. Osteopenia. Right femur ORIF. Electronically signed by: Geri Briscoe MD 06/25/2021 10:54 PM CDT Due to temporary technical issues with the PACS/Fluency reporting system, reports are being signed by the in house radiologist without review as a courtesy to ensure prompt reporting. The interpreting r adiologist is fully responsible for the content of the report.
--- NOTE | 2021-06-27 10:54 | RAD REPORT ---
EXAM DESCRIPTION: CT - Pelvis Wo Cont - 06/26/2021 5:49 am CLINICAL HISTORY: Pelvic trauma COMPARISON: None. TECHNIQUE: Axial unenhanced CT imaging of the pelvis. Imaging extent to both knees. Reformatted sb nal and sagittal images reviewed. Examination was performed according to our departmental dose-optimization program, which includes aut omated exposure control, adjustment of the mA and/or kV according to patient size and/or use of itera tive reconstruction technique. FINDINGS: The imaged small bowel loops appear normal. Appendix is not seen. Mild sigmoid colon diver ticulosis without diverticulitis. No ascites or free air. Normal bladder and uterus. No pelvic lympha denopathy. There is an acute fracture the right superior pubic ramus. Intact symphysis pubis. Intact sacrum. Sac roiliac joints appear intact. No acute fracture within the right or left femur. There is an intact ri ght femur fixation maría elena with a proximal intramedullary maría elena and transcervical fixation nail. There is n o hardware fracture. The hip joints appear normal and symmetric. No hip effusion. There is vacuum disc at L4-5 and L5-S1. Lumbosacral alignment is anatomic. IMPRESSION: 1. Acute right superior pubic ramus fracture. 2. Sigmoid colon diverticulosis without diverticulitis. Electronically signed by: Maryana Washington DO 06/25/2021 11:39 PM CDT Due to temporary technical issues with the PACS/Fluency reporting system, reports are being signed by the in house radiologist without review as a courtesy to ensure prompt reporting. The interpreting r adiologist is fully responsible for the content of the report.
--- NOTE | 2021-06-27 11:11 | RAD REPORT ---
EXAM DESCRIPTION: CT - Thoracic Spine Wo Cont - 06/27/2021 10:40 am CLINICAL HISTORY: Radiculopathy. Fall with back pain COMPARISON: Spine Lumbar Wo Con dated 06/27/2021; Head C Spine Mpr Wo Con dated 06/25/2021 TECHNIQUE: Axial CT imaging through the thoracic spine was performed with coronal and sagittal re-fo rmatted images. All CT scans are performed using dose optimization technique as appropriate and may include automated exposure control or mA/KV adjustment according to patient size. FINDINGS: There is mild wedge compression fracture affecting the T3 vertebral body. This has an acut e appearance with mild thickening of the paraspinal soft tissues. Estimated vertebral body height los s is 20%. Mild compression deformities also seen affecting T 11 and T12 more chronic in appearance. Thoracic spine alignment is within normal limits. No evidence of high-grade canal compromise at any level. IMPRESSION: Suspected acute mild compression fracture affecting T3 vertebral body. There is approxim ately 20% loss of vertebral body height.
--- NOTE | 2021-06-27 11:13 | RAD REPORT ---
EXAM DESCRIPTION: CT - Spine Lumbar Wo Con - 06/27/2021 10:40 am CLINICAL HISTORY: Radiculopathy. Fall with back pain COMPARISON: No comparisons TECHNIQUE: Axial noncontrast CT imaging of the lumbar spine was performed with coronal and sagittal re-formatted images. All CT scans are performed using dose optimization technique as appropriate and may include automated exposure control or mA/KV adjustment according to patient size. FINDINGS: Compression deformities, [id number] are present affecting L1, L2 and L3. These appea r chronic in timeframe. Vacuum disc degeneration with mild anterolisthesis of L4 on 5 is present. Symmetric sacroiliac joints are present. Probable herniated discs are present L4-5 and L5-S1 with moderate central canal stenosis. IMPRESSION: Chronic compression deformities of L1, L2 and L3 are suspected. Moderate lower lumbar spondylosis is present with moderate central canal narrowing.
[2021-06-27 12:54] VITALS: BP 144/70; TEMP 97.5
--- NOTE | 2021-06-27 13:21 | P.DS ---
Admission Date: 06/26/21 Discharge Date: 06/27/21 Disposition: ROUTINE DISCHARGE Discharge Condition: FAIR Reason for Admission: Pubic Ramus Fracutre, Leg Weakness - Problems (1) Pubic ramus fracture Current Visit: Yes Status: Acute Qualifiers: Encounter type: initial encounter Fracture type: closed Laterality: right Qualified Code(s): S32.591A - Other specified fracture of right pubis, initial encounter for closed fracture (2) Gastroesophageal reflux Onset Date: 06/22/14 Current Visit: No Status: Acute (3) Seizure disorder Onset Date: 06/22/14 Current Visit: No Status: Acute (4) Hypertension Current Visit: No Status: Chronic Qualifiers: Hypertension type: primary hypertension Qualified Code(s): I10 - Essential (primary) hypertension Brief History of Present Illness: Patient is a 75-year-old female with HTN who presents to the ED with complaints of right leg pain and weakness. Patient reported falling on her right side a couple of times. She has history of ORIF on right femur. Patient stated that she was unable to walk now due to pain in her groin and hip. CT pelvis showed acute right superior pubic ramus fracture. Labs within normal limits. because of patient's significant weakness and decreased range of motion in R leg, patient was hospitalized for further management. Hospital Course: Patient admitted to the medical floor and treated with supportive measures including IV and oral opioids for pain control. Patient seen by Ortho-Dr. Stiles and no intervention recommended. Seen by PT, she ambulated with a walker. She was complaining of back pain. 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 Dr. Stiles recommended medical treatment for the T3 compression fracture. Inpatient rehab was offered but patient preferred to do outpatient rehab at [place]. Vitals are stable, patient is clinically stable for discharge. Weightbearing as tolerated recommended. Vital Signs/Physical Exam: Temp Pulse Resp BP Pulse Ox 97.5 F 83 18 144/70 H 98 06/27/21 12:00 06/27/21 12:00 06/27/21 12:00 06/27/21 12:00 06/27/21 12:00 General: Alert, In no apparent distress, Oriented x3 HEENT: Mucous membr. moist/pink Neck: JVD not distended Respiratory: Clear to auscultation bilaterally, Normal air movement Cardiovascular: No edema, Regular rate/rhythm, Normal S1 S2 Gastrointestinal: Soft and benign, Non-distended, No tenderness Musculoskeletal: No swelling Integumentary: No rashes Neurological: Normal strength at 5/5 x4 extr Laboratory Data at Discharge: WBC 4.7 K/uL (4.3-10.9) 06/25/21 22:14 Hgb 10.7 g/dL (12.0-15.0) L 06/25/21 22:14 Hct 30.2 % (36.0-45.0) L 06/25/21 22:14 Plt Count 161 K/uL (152-406) 06/25/21 22:14 Sodium 137 mmol/L (136-145) 06/25/21 22:14 Potassium 3.7 mmol/L (3.5-5.1) 06/25/21 22:14 BUN 17 mg/dL (7-18) 06/25/21 22:14 Creatinine 0.74 mg/dL (0.55-1.3) 06/25/21 22:14 Glucose 101 mg/dL (74-106) 06/25/21 22:14 Total Bilirubin 0.6 mg/dL (0.2-1.0) 06/25/21 22:14 AST 24 U/L (15-37) 06/25/21 22:14 ALT 28 U/L (12-78) 06/25/21 22:14 Alkaline Phosphatase 117 U/L (45-117) 06/25/21 22:14 Home Medications: Phenytoin Sodium Extended [Dilantin] 300 mg PO BEDTIME 06/20/14 Valsartan 160 mg PO DAILY 06/20/14 carvediloL [Coreg*] 25 mg PO BID 06/20/14 Multivit-Min/FA/Lycopen/Lutein [Centrum Silver Tablet] 1 tab PO DAILY 06/26/21 Hydrocodone 5/APAP 325 [[place] 5/325] 1 tab PO Q6H PRN #15 tab 06/27/21 New Medications: Hydrocodone 5/APAP 325 [[place] 5/325] 1 tab PO Q6H PRN #15 tab PRN Reason: Pain Physician Discharge Instructions: Outpatient physical therapy referral. Diet: AHA Activity: Weight bearing as tolerated Followup: NONE,NONE [Primary Care Provider] - 1 Week Time spent managing pt's care (in minutes): 36
== END 2021-06-27 16:00 | disposition home or self-care (01) | DRG 536 ==
LOC: ER 17:00 → ERHOLD 06-26 00:13 → 2ND 06-26 00:31 → OBSVTOIN 06-26 17:16
PROVIDERS: ADMIT Internal Medicine; ATTEND Internal Medicine
DX: S32.511A Fracture of superior rim of right pubis, initial encounter for closed fracture (principal); S22.039A Unspecified fracture of third thoracic vertebra, initial encounter for closed fracture; I10 Essential (primary) hypertension; E78.5 Hyperlipidemia, unspecified; K21.9 Gastro-esophageal reflux disease without esophagitis; G40.909 Epilepsy, unspecified, not intractable, without status epilepticus; W18.30XA Fall on same level, unspecified, initial encounter; Y92.009 Unspecified place in unspecified non-institutional (private) residence as the place of occurrence of the external cause; Z85.3 Personal history of malignant neoplasm of breast; Z20.822 Contact with and (suspected) exposure to COVID-19; Z98.890 Other specified postprocedural states
CPT/HCPCS: 36415; 70450; 72125; 72128; 72131; 72170; 72192; 80053; 80185; 81003; 85025; 96361; 96374; 96375; 97110; 97116; 97161; 97530; 99285; G0378; J2270; J2405; J7030; U0003